=== PATIENT | female | born 1950 | race Caucasian/White ===

== ENCOUNTER 2018-08-12 21:15 | Emergency (ER) | payer MEDICARE ==
[2018-08-12 21:24] VITALS: BP 137/62
[2018-08-12] MEDS ORDERED: Sodium Chloride 0.9% 1,000 ML IV SCH (21:30)
[2018-08-12] MEDS ORDERED: Metoclopramide 10 MG/2 ML SDV IVPUSH ONE (21:32)
[2018-08-12] MEDS ORDERED: diphenhydrAMINE 50 MG/ML SDV IVPUSH ONE (21:32)
--- NOTE | 2018-08-12 21:33 | EDM.PDOC ---
ED HPI GENERAL MEDICAL PROBLEM - General Chief Complaint: Gastrointestinal Problem Stated Complaint: [facility] Time Seen by Provider: 08/12/18 21:24 Source of Information: Reports: Patient, EMS History Limitations: Reports: Altered Mental Status - History of Present Illness INITIAL COMMENTS - FREE TEXT/NARRATIVE: 67-year-old female arrives in the ambulance from [place]. Apparently she's been vomiting intractably since about 1830 hrs. Emesis reported to be dark black in color. Questionable coffee grounds. Has no teeth in. She is mumbling and somewhat dysarthric. She seems to answer appropriately. She is lying still in the left lateral decubitus position. She will not comment that she is dizzy or lightheaded or has a headache. Denies any recent falls. Clear whether she received any medication for vomiting from the [place] ambulance as was no documentation to medications given. Patient denies any abdominal pain. Has no history of peptic ulcer disease. Is been no bright red blood appreciated. Onset: Today Onset Date: 08/12/18 Onset Time: 18:30 Duration: Hour(s): Location: Reports: Abdomen Quality: Reports: Other Severity: Severe (Intractable nausea and vomiting) Improves with: Reports: None Worsens with: Reports: None Context: Reports: Other. Denies: Activity, Exercise, Lifting, Sick Contact, Trauma Associated Symptoms: Reports: Confusion (From what I can gather spontaneous occurrence about 1830 hrs. this evening.), Loss of Appetite, Malaise, Nausea/ Vomiting. Denies: Chest Pain, Cough, cough w sputum, Diaphoresis, Fever/Chills , Headaches, Rash, Seizure (Intractable as mentioned above.), Shortness of Breath, Syncope Treatments [employer]EL [employer]IN[employer]PERATOR: Reports: Other (see below) (None to my knowledge.) - Related Data Allergies Allergy/AdvReac Type Severity Reaction Status Date / Time No Known Allergies Allergy Verified 08/12/18 21:22 Home Meds: Home Meds OLANZapine 20 mg PO BEDTIME 04/05/15 [History] Pravastatin [Pravachol] 40 mg PO DAILY 04/05/15 [History] traZODone 150 mg PO BEDTIME 04/05/15 [History] Past Medical History Cardiovascular History: Reports: High Cholesterol Respiratory History: Reports: COPD (Not on oxygen.) Gastrointestinal History: Reports: GERD, Hiatal Hernia (For many years she's had a large hiatal hernia with her stomach up in her chest.) Musculoskeletal History: Reports: Back Pain, Chronic, Osteoarthritis, Osteoporosis Psychiatric History: Reports: Depression, Schizophrenia (Chronic schizophrenia.) , Other (See Below) (Insomnia) Social & Family History - Tobacco Use Smoking Status *Q: Former Smoker - Living Situation & Occupation Living situation: Reports: , with Spouse Occupation: Retired ED ROS GENERAL - Review of Systems Review Of Systems: See Below Constitutional: Reports: Malaise, Fatigue. Denies: Fever, Chills HEENT: Reports: No Symptoms Respiratory: Reports: Shortness of Breath (Tachypneic on examination at 26/m. O2 sats 90% on room air.), Cough. Denies: Wheezing, Pleuritic Chest Pain Cardiovascular: Reports: Blood Pressure Problem, Dyspnea on Exertion (On lisinopril.). Denies: Chest Pain (Reports she is a smoker.), Claudication, Orthopnea Endocrine: Reports: Fatigue GI/Abdominal: Reports: Nausea, Vomiting (Intractable nausea and vomiting with black emesis reported by paramedics.). Denies: Abdominal Pain, Anorexia, Black Stool, Bloody Stool : Reports: Frequency Musculoskeletal: Reports: Back Pain Skin: Reports: No Symptoms Neurological: Reports: Confusion (Seems to be confused but she has no teeth in at present. She is on multiple sedative medications. Goal to get a history at this time as she is not very talkative and is quite dysarthric.) Psychiatric: Reports: Depression (Has bipolar affective disorder and is on multiple medications to that effect such as olanzapine and trazodone.) Hematologic/Lymphatic: Reports: No Symptoms Immunologic: Reports: No Symptoms ED EXAM, GI/ABD - Physical Exam Exam: See Below Exam Limited By: Altered Mental Status (She is dysarthric speech. She prefers to lie very still with her eyes closed. She denies any vertigo symptoms that I can identify at this time.) General Appearance: Lethargic, Mild Distress, Other (O2 sats are low at 90-92%.) Throat/Mouth: Other Head: Atraumatic, Normocephalic (Tongue is mildly dry and coated.) Neck: Normal Inspection, Supple, Non-Tender, Full Range of Motion. No: Carotid Bruit, Lymphadenopathy (L), Lymphadenopathy (R) Respiratory/Chest: Decreased Breath Sounds, Wheezing (Decreased air into the lower 30% of lung hong bilaterally. Expiratory wheezes.), Other (Anterior lung hong are clear with no evidence of aspiration) Cardiovascular: Regular Rate, Rhythm, No Edema, No Gallop, No Murmur, No Rub GI/Abdominal Exam: Normal Bowel Sounds, Soft, Non-Tender, No Organomegaly, No Abnormal Bruit, No Mass, Pelvis Stable, Other (Obese abdomen.) Back Exam: Normal Inspection, Full Range of Motion. No: CVA Tenderness (L), CVA Tenderness (R) Extremities: Normal Inspection, Normal Range of Motion, Non-Tender, No Pedal Edema, Other (Patient is evidence of pressure ulcers developing on the lateral aspects of both distal fibula. Both knees. Left hip in particular shows evidence of line on the hip for prolonged periods of time with development of friction type blisters and early skin breakdown.) Neurological: Slow to Respond, Other (Dysarthric.) Psychiatric: Other (Unable to assess.) Skin Exam: Warm, Dry, Pallor (Mildly pallid.) EKG INTERPRETATION EKG Date: 08/12/18 Time: 21:35 Rhythm: Other (Occasional unifocal PVCs.) Rate (Beats/Min): 85 [place]: Normal P-Wave: Present QRS: Other (Hours are prime wave in V1 and V2 V3 compatible with an incomplete Rt heart block.) ST-T: Normal QT: Prolonged (Mildly prolonged) EKG Interpretation Comments: Abnormal ECG Course - Vital Signs Last Recorded V/S: Last Vital Signs Temp 36.5 C 08/12/18 21:22 Pulse 89 08/12/18 21:22 Resp 26 H 08/12/18 21:22 BP 137/62 08/12/18 21:22 Pulse Ox 92 L 08/12/18 21:22 - Orders/Labs/Meds Orders: Active Orders 24 hr Category Date Time Status EKG Documentation Completion [RC] STAT Care 08/12/18 21:26 Active Insert Urinary Catheter [OM.PC] Q24H Care 08/12/18 23:15 Ordered Oxygen Therapy [RC] ASDIRECTED Care 08/12/18 21:25 Active Chest 1V Frontal [CR] Stat Exams 08/12/18 23:05 Taken Chest PE [Ang Chest] [CT] Stat Exams 08/12/18 23:02 Taken Head wo Cont [CT] Stat Exams 08/12/18 21:29 Taken CULTURE URINE [RM] Stat Lab 08/13/18 01:12 Received PATIENT RETYPE [BBK] Stat Lab 08/12/18 21:58 Results TYPE AND SCREEN [BBK] Stat Lab 08/12/18 21:58 Results Azithromycin [Zithromax] 500 mg Med 08/13/18 02:44 Active Sodium Chloride 0.9% [Normal Saline] 250 ml IV ONETIME Pantoprazole [ProTONIX IV] 80 mg Med 08/13/18 02:15 Active Sodium Chloride 0.9% [Normal Saline] 100 ml IV Q10H Sodium Chloride 0.9% [Normal Saline] 1,000 ml Med 08/12/18 21:30 Active IV ASDIRECTED Sodium Chloride 0.9% [Normal Saline] 1,000 ml Med 08/13/18 00:15 Active IV ASDIRECTED Sodium Chloride 0.9% [Normal Saline] 100 ml Med 08/13/18 00:15 Active IV ASDIRECTED Medication Orders Sodium Chloride (Normal Saline) 1,000 mls @ 500 mls/hr IV ASDIRECTED [facility] Last Admin: 08/12/18 21:39 Dose: 500 mls/hr Sodium Chloride (Normal Saline) 1,000 mls @ 100 mls/hr IV ASDIRECTED [facility] Last Admin: 08/13/18 00:11 Dose: 100 mls/hr Sodium Chloride (Normal Saline) 100 mls @ 4 mls/sec IV ASDIRECTED [facility] Last Admin: 08/13/18 00:15 Dose: 4 mls/sec Pantoprazole Sodium 80 mg/ (Sodium Chloride) 100 mls @ 10 mls/hr IV Q10H [facility] Last Admin: 08/13/18 02:26 Dose: 10 mls/hr Azithromycin 500 mg/ Sodium (Chloride) 250 mls @ 250 mls/hr IV ONETIME ONE Stop: 08/13/18 03:43 Last Admin: 08/13/18 03:05 Dose: 250 mls/hr Labs: Laboratory Tests 08/12/18 08/12/18 08/12/18 Range/Units 21:58 21:58 21:58 WBC 18.69 H (3.98-10.04) K/mm3 RBC 5.09 (3.98-5.22) M/mm3 Hgb 14.3 (11.2-15.7) gm/L Hct 43.2 (34.1-44.9) % MCV 84.9 (79.4-94.8) fl MCH 28.1 (25.6-32.2) pg MCHC 33.1 (32.2-35.5) g/dl RDW Std Deviation 43.5 (36.4-46.3) fL Plt Count 271 (182-369) K/mm3 MPV 11.4 (9.4-12.3) fl Neutrophils % (Manual) 86 H (40-60) % Band Neutrophils % 0 (0-10) % Lymphocytes % (Manual) 9 L (20-40) % Atypical Lymphs % 0 % Monocytes % (Manual) 5 (2-10) % Eosinophils % (Manual) 0 L (0.7-5.8) % Basophils % (Manual) 0 L (0.1-1.2) Platelet Estimate Adequate Plt Morphology Comment Normal RBC Morph Comment Normal PT 10.4 (9.5-12.1) SECONDS INR 0.95 APTT Cancelled D-Dimer, Quantitative 4.46 H (0.19-0.50) mg/L Sodium 133 L (136-145) mEq/L Potassium 4.1 (3.5-5.1) mEq/L Chloride 96 L (98-107) mEq/L Carbon Dioxide 28 (21-32) mEq/L Anion Gap 13.1 (5-15) BUN 10 (7-18) mg/dL Creatinine 1.1 H (0.55-1.02) mg/dL Est Cr Clr Drug Dosing 38.71 mL/min Estimated GFR (MDRD) 49 (>60) mL/min BUN/Creatinine Ratio 9.1 L (14-18) Glucose 151 H (80-115) mg/dL Lactic Acid (0.4-2.0) mmol/L Calcium 9.1 (8.5-10.1) mg/dL Magnesium (1.8-2.4) mg/dl Total Bilirubin 0.4 (0.2-1.0) mg/dL AST 94 H (15-37) U/L ALT 26 (14-59) U/L Alkaline Phosphatase 82 (46-116) U/L NT-Pro-B Natriuret Pep (0-125) pg/mL Total Protein 7.7 (6.4-8.2) g/dl Albumin 3.3 L (3.4-5.0) g/dl Globulin 4.4 gm/dL Albumin/Globulin Ratio 0.8 L (1-2) Urine Color (Yellow) Urine Appearance (Clear) Urine pH (5.0-8.0) Ur Specific Venus (1.005-1.030) Urine Protein (Negative) Urine Glucose (UA) (Negative) Urine Ketones (Negative) Urine Occult Blood (Negative) Urine Nitrite (Negative) Urine Bilirubin (Negative) Urine Urobilinogen (0.2-1.0) Ur Leukocyte Esterase (Negative) Urine RBC (0-5) /hpf Urine WBC (0-5) /hpf Ur Epithelial Cells (0-5) /hpf Urine Bacteria (FEW) /hpf Urine Mucus (FEW) /hpf Urine Opiates Screen (NEGATIVE) Ur Buprenorphine Scrn (NEGATIVE) Ur Oxycodone Screen (NEGATIVE) Urine Methadone Screen (NEGATIVE) Ur Propoxyphene Screen (NEGATIVE) Ur Barbiturates Screen (NEGATIVE) Ur Tricyclics Screen (NEGATIVE) Ur Phencyclidine Scrn (NEGATIVE) Ur Amphetamine Screen (NEGATIVE) U Methamphetamines Scrn (NEGATIVE) U Benzodiazepines Scrn (NEGATIVE) U Cocaine Metab Screen (NEGATIVE) U Marijuana (THC) Screen (NEGATIVE) Ethyl Alcohol 0.00 (0.00) gm% H. pylori IgG Antibody (NEGATIVE) Blood Type Gel Antibody Screen 08/12/18 08/12/18 08/12/18 Range/Units 21:58 21:58 21:58 WBC (3.98-10.04) K/mm3 RBC (3.98-5.22) M/mm3 Hgb (11.2-15.7) gm/L Hct (34.1-44.9) % MCV (79.4-94.8) fl MCH (25.6-32.2) pg MCHC (32.2-35.5) g/dl RDW Std Deviation (36.4-46.3) fL Plt Count (182-369) K/mm3 MPV (9.4-12.3) fl Neutrophils % (Manual) (40-60) % Band Neutrophils % (0-10) % Lymphocytes % (Manual) (20-40) % Atypical Lymphs % % Monocytes % (Manual) (2-10) % Eosinophils % (Manual) (0.7-5.8) % Basophils % (Manual) (0.1-1.2) Platelet Estimate Plt Morphology Comment RBC Morph Comment PT (9.5-12.1) SECONDS INR APTT D-Dimer, Quantitative (0.19-0.50) mg/L Sodium (136-145) mEq/L Potassium (3.5-5.1) mEq/L Chloride (98-107) mEq/L Carbon Dioxide (21-32) mEq/L Anion Gap (5-15) BUN (7-18) mg/dL Creatinine (0.55-1.02) mg/dL Est Cr Clr Drug Dosing mL/min Estimated GFR (MDRD) (>60) mL/min BUN/Creatinine Ratio (14-18) Glucose (80-115) mg/dL Lactic Acid (0.4-2.0) mmol/L Calcium (8.5-10.1) mg/dL Magnesium 2.0 (1.8-2.4) mg/dl Total Bilirubin (0.2-1.0) mg/dL AST (15-37) U/L ALT (14-59) U/L Alkaline Phosphatase (46-116) U/L NT-Pro-B Natriuret Pep (0-125) pg/mL Total Protein (6.4-8.2) g/dl Albumin (3.4-5.0) g/dl Globulin gm/dL Albumin/Globulin Ratio (1-2) Urine Color (Yellow) Urine Appearance (Clear) Urine pH (5.0-8.0) Ur Specific Venus (1.005-1.030) Urine Protein (Negative) Urine Glucose (UA) (Negative) Urine Ketones (Negative) Urine Occult Blood (Negative) Urine Nitrite (Negative) Urine Bilirubin (Negative) Urine Urobilinogen (0.2-1.0) Ur Leukocyte Esterase (Negative) Urine RBC (0-5) /hpf Urine WBC (0-5) /hpf Ur Epithelial Cells (0-5) /hpf Urine Bacteria (FEW) /hpf Urine Mucus (FEW) /hpf Urine Opiates Screen (NEGATIVE) Ur Buprenorphine Scrn (NEGATIVE) Ur Oxycodone Screen (NEGATIVE) Urine Methadone Screen (NEGATIVE) Ur Propoxyphene Screen (NEGATIVE) Ur Barbiturates Screen (NEGATIVE) Ur Tricyclics Screen (NEGATIVE) Ur Phencyclidine Scrn (NEGATIVE) Ur Amphetamine Screen (NEGATIVE) U Methamphetamines Scrn (NEGATIVE) U Benzodiazepines Scrn (NEGATIVE) U Cocaine Metab Screen (NEGATIVE) U Marijuana (THC) Screen (NEGATIVE) Ethyl Alcohol (0.00) gm% H. pylori IgG Antibody Positive H (NEGATIVE) Blood Type O POSITIVE Gel Antibody Screen Negative 08/12/18 08/12/18 08/12/18 Range/Units 21:58 22:43 22:43 WBC (3.98-10.04) K/mm3 RBC (3.98-5.22) M/mm3 Hgb (11.2-15.7) gm/L Hct (34.1-44.9) % MCV (79.4-94.8) fl MCH (25.6-32.2) pg MCHC (32.2-35.5) g/dl RDW Std Deviation (36.4-46.3) fL Plt Count (182-369) K/mm3 MPV (9.4-12.3) fl Neutrophils % (Manual) (40-60) % Band Neutrophils % (0-10) % Lymphocytes % (Manual) (20-40) % Atypical Lymphs % % Monocytes % (Manual) (2-10) % Eosinophils % (Manual) (0.7-5.8) % Basophils % (Manual) (0.1-1.2) Platelet Estimate Plt Morphology Comment RBC Morph Comment PT (9.5-12.1) SECONDS INR APTT 27 D-Dimer, Quantitative (0.19-0.50) mg/L Sodium (136-145) mEq/L Potassium (3.5-5.1) mEq/L Chloride (98-107) mEq/L Carbon Dioxide (21-32) mEq/L Anion Gap (5-15) BUN (7-18) mg/dL Creatinine (0.55-1.02) mg/dL Est Cr Clr Drug Dosing mL/min Estimated GFR (MDRD) (>60) mL/min BUN/Creatinine Ratio (14-18) Glucose (80-115) mg/dL Lactic Acid (0.4-2.0) mmol/L Calcium (8.5-10.1) mg/dL Magnesium (1.8-2.4) mg/dl Total Bilirubin (0.2-1.0) mg/dL AST (15-37) U/L ALT (14-59) U/L Alkaline Phosphatase (46-116) U/L NT-Pro-B Natriuret Pep (0-125) pg/mL Total Protein (6.4-8.2) g/dl Albumin (3.4-5.0) g/dl Globulin gm/dL Albumin/Globulin Ratio (1-2) Urine Color Yellow (Yellow) Urine Appearance Cloudy H (Clear) Urine pH 6.0 (5.0-8.0) Ur Specific Venus > or = 1.030 (1.005-1.030) Urine Protein 1+ H (Negative) Urine Glucose (UA) Negative (Negative) Urine Ketones Negative (Negative) Urine Occult Blood Trace-lysed H (Negative) Urine Nitrite Negative (Negative) Urine Bilirubin Negative (Negative) Urine Urobilinogen 0.2 (0.2-1.0) Ur Leukocyte Esterase 1+ H (Negative) Urine RBC 5-10 H (0-5) /hpf Urine WBC 20-30 H (0-5) /hpf Ur Epithelial Cells 0-5 (0-5) /hpf Urine Bacteria Many H (FEW) /hpf Urine Mucus Few (FEW) /hpf Urine Opiates Screen Negative (NEGATIVE) Ur Buprenorphine Scrn Negative (NEGATIVE) Ur Oxycodone Screen Negative (NEGATIVE) Urine Methadone Screen Negative (NEGATIVE) Ur Propoxyphene Screen Negative (NEGATIVE) Ur Barbiturates Screen Negative (NEGATIVE) Ur Tricyclics Screen Presumptive positive H (NEGATIVE) Ur Phencyclidine Scrn Negative (NEGATIVE) Ur Amphetamine Screen Negative (NEGATIVE) U Methamphetamines Scrn Presumptive positive H (NEGATIVE) U Benzodiazepines Scrn Presumptive positive H (NEGATIVE) U Cocaine Metab Screen Negative (NEGATIVE) U Marijuana (THC) Screen Negative (NEGATIVE) Ethyl Alcohol (0.00) gm% H. pylori IgG Antibody (NEGATIVE) Blood Type Gel Antibody Screen 08/12/18 08/13/18 08/13/18 Range/Units 23:10 02:25 02:25 WBC (3.98-10.04) K/mm3 RBC (3.98-5.22) M/mm3 Hgb (11.2-15.7) gm/L Hct (34.1-44.9) % MCV (79.4-94.8) fl MCH (25.6-32.2) pg MCHC (32.2-35.5) g/dl RDW Std Deviation (36.4-46.3) fL Plt Count (182-369) K/mm3 MPV (9.4-12.3) fl Neutrophils % (Manual) (40-60) % Band Neutrophils % (0-10) % Lymphocytes % (Manual) (20-40) % Atypical Lymphs % % Monocytes % (Manual) (2-10) % Eosinophils % (Manual) (0.7-5.8) % Basophils % (Manual) (0.1-1.2) Platelet Estimate Plt Morphology Comment RBC Morph Comment PT (9.5-12.1) SECONDS INR APTT D-Dimer, Quantitative (0.19-0.50) mg/L Sodium (136-145) mEq/L Potassium (3.5-5.1) mEq/L Chloride (98-107) mEq/L Carbon Dioxide (21-32) mEq/L Anion Gap (5-15) BUN (7-18) mg/dL Creatinine (0.55-1.02) mg/dL Est Cr Clr Drug Dosing mL/min Estimated GFR (MDRD) (>60) mL/min BUN/Creatinine Ratio (14-18) Glucose (80-115) mg/dL Lactic Acid 1.3 (0.4-2.0) mmol/L Calcium (8.5-10.1) mg/dL Magnesium 2.0 (1.8-2.4) mg/dl Total Bilirubin (0.2-1.0) mg/dL AST (15-37) U/L ALT (14-59) U/L Alkaline Phosphatase (46-116) U/L NT-Pro-B Natriuret Pep 565 H (0-125) pg/mL Total Protein (6.4-8.2) g/dl Albumin (3.4-5.0) g/dl Globulin gm/dL Albumin/Globulin Ratio (1-2) Urine Color (Yellow) Urine Appearance (Clear) Urine pH (5.0-8.0) Ur Specific Venus (1.005-1.030) Urine Protein (Negative) Urine Glucose (UA) (Negative) Urine Ketones (Negative) Urine Occult Blood (Negative) Urine Nitrite (Negative) Urine Bilirubin (Negative) Urine Urobilinogen (0.2-1.0) Ur Leukocyte Esterase (Negative) Urine RBC (0-5) /hpf Urine WBC (0-5) /hpf Ur Epithelial Cells (0-5) /hpf Urine Bacteria (FEW) /hpf Urine Mucus (FEW) /hpf Urine Opiates Screen (NEGATIVE) Ur Buprenorphine Scrn (NEGATIVE) Ur Oxycodone Screen (NEGATIVE) Urine Methadone Screen (NEGATIVE) Ur Propoxyphene Screen (NEGATIVE) Ur Barbiturates Screen (NEGATIVE) Ur Tricyclics Screen (NEGATIVE) Ur Phencyclidine Scrn (NEGATIVE) Ur Amphetamine Screen (NEGATIVE) U Methamphetamines Scrn (NEGATIVE) U Benzodiazepines Scrn (NEGATIVE) U Cocaine Metab Screen (NEGATIVE) U Marijuana (THC) Screen (NEGATIVE) Ethyl Alcohol (0.00) gm% H. pylori IgG Antibody (NEGATIVE) Blood Type Gel Antibody Screen Meds: Medications Generic Name Dose Route Start Last Admin Trade Name Freq PRN Reason Stop Dose Admin Sodium Chloride 1,000 mls @ 500 mls/hr 08/12/18 21:30 08/12/18 21:39 Normal Saline IV 500 mls/hr ASDIRECTED [facility] Administration Sodium Chloride 1,000 mls @ 100 mls/hr 08/13/18 00:15 08/13/18 00:11 Normal Saline IV 100 mls/hr ASDIRECTED [facility] Administration Sodium Chloride 100 mls @ 4 mls/sec 08/13/18 00:15 08/13/18 00:15 Normal Saline IV 4 mls/sec ASDIRECTED [facility] Administration Pantoprazole Sodium 80 mg/ 100 mls @ 10 mls/hr 08/13/18 02:15 08/13/18 02:26 Sodium Chloride IV 10 mls/hr Q10H [facility] Administration Azithromycin 500 mg/ Sodium 250 mls @ 250 mls/hr 08/13/18 02:44 08/13/18 03: 05 Chloride IV 08/13/18 03:43 250 mls/hr ONETIME ONE Administration Discontinued Medications Generic Name Dose Route Start Last Admin Trade Name Freq PRN Reason Stop Dose Admin Diphenhydramine HCl 25 mg 08/12/18 21:32 08/12/18 21:51 Benadryl IVPUSH 08/12/18 21:33 25 mg ONETIME ONE Administration Ceftriaxone Sodium 2 gm/ 100 mls @ 100 mls/hr 08/13/18 01:07 08/13/18 01:17 Sodium Chloride IV 08/13/18 02:06 100 mls/hr ONETIME ONE Administration Iopamidol 100 ml 08/13/18 00:13 08/13/18 00:14 Isovue-370 (76%) IVPUSH 08/13/18 00:14 100 ml ONETIME ONE Administration Metoclopramide HCl 10 mg 08/12/18 21:32 08/12/18 21:51 Reglan IVPUSH 08/12/18 21:33 10 mg ONETIME ONE Administration Pantoprazole Sodium 40 mg 08/13/18 02:13 08/13/18 02:25 Protonix Iv IVPUSH 08/13/18 02:14 40 mg ONETIME ONE Administration - Radiology Interpretation Free Text/Narrative:: 67-year-old female arrives per [place] ambulance with reported intractable nausea and vomiting of black material possibly representing coffee ground emesis. It is unclear when she started vomiting. One of her lucid moments she mentioned to the nurse that it was yesterday. Her reported 1:30 today and to me she told me it was 1830 hrs. tonight. Unclear whether paramedics they administered any medication to her. She arrives and is lying on her left lateral decubitus position with eyes closed. Speech is quite dysarthric but she doesn't have her TPN. She seems quite lethargic. She denies headache. Abdominal pain. She is a smoker. Exam of her vital signs reveal O2 sats of only 90-92% on room air. Placed on oxygen at 2 L/m by nasal cannula. Respiratory rate was 26/ m. Her pressure is normal. Afebrile. Quite pallid and slightly diaphoretic on examination. You're difficult to get much history from her she prefers to lie very still with her eyes closed. She denies headache. Concern for possible stroke is evident to dysarthric speech and intractable nausea and vomiting. No family members are with her. Plan CT head to rule out a intracranial bleed. Given Reglan 10 mg IV with Benadryl 25 mg IV to make sure there is no dystonic reaction i.e. with reaction to her Olanzapine that she takes daily. Routine labs including blood alcohol and urine drug screen to be done. IV will be normal saline at 500 mils per hour. Type and screen performed. - Re-Assessments/Exams Free Text/Narrative Re-Assessment/Exam: 08/12?18: 22:00: CT of the head has been completed. It reveals significant periventricular white matter hypodensities bilaterally. A lacunar infarct involving the left basal ganglia is again noted. There is mild age related parenchymal volume loss. Stable slight asymmetry of the lateral ventricles left larger than the right. No true ventriculomegaly. No fractures are intracranial bleeding are identified. 08/12/18 23:01 White count is markedly elevated at 18.69 with 86% neutrophils and no bands reported. Hemoglobin is 14.3 with hematocrit of 43.2. Platelet count is 271,000. PT is 10.4 with an INR of 0.95. PTT is 27. D-dimer is elevated at 4.46. Sodium is 133 with a potassium of 4.1. Chloride is 96 with a bicarbonate of 28. And a gap is 13.1 with a BUN of 10. Creatinine is 1.1 with a GFR of 49. Glucose is slightly elevated at 151. Calcium is 9.1 magnesium is 2.0. Total bilirubin 0.4. AST is 94 with an ALT of 26. Alk phosphatase is 82. Albumin fraction slightly low at 3.3 total protein is normal at 7.7. Blood alcohol was 0.0. Due to the elevated d-dimer I will have a CT pulmonary and gram carried out. Creatinine is 1.1. The elevated white blood cell count unclear if this is stress response versus an infective process. I will order a lactic acid. Urinalysis is not yet been completed I had ordered it by catheterization. 08/12/18 23:09 H. pylori was positive as well. The emesis was tested for blood and was heme positive on Hemoccult testing which may not be accurate. However the emesis has the characteristics of coffee-ground emesis. 08/13/18 00:32 Patient has had no vomiting since in the department. She has been mostly sleeping. Portable chest x-ray reveals a large soft tissue density with air in the mid chest is suspicious for a large hiatal hernia. This makes reading of the size of her heart somewhat difficult but there appears to be moderate cardiomegaly. There is some scarring in both upper and lower lobes. Small pleural effusion with blunting of the costophrenic angle on the left side. ET pulmonary and gram is been completed but I do not have the radiology report back yet. 08/13/18 01:09 Urine obtained by catheter reveals 1+ leukocyte esterase trace. There is 5-10 RBCs and 20-30 WBCs per high-power field as well. Many bacteria appreciated. Cultures will be ordered. Urinalysis is positive for tricyclics presumptively as well as methamphetamines and benzodiazepines. [place] was 0. Lactic acid was 1.3. CT of the chest done with contrast to rule out PE. Exam is moderately limited by motion artifact. Lungs reveals severe central lobar emphysematous changes bilaterally. There is a focal consolidation within the right lower lobe. There is mild airspace disease within the left base as well with some groundglass opacification. A linear band of airspace disease is seen within the right middle lobe. Pleural space appears normal with no pneumothorax or pleural effusion. Heart borderline cardiomegaly with no pericardial effusion. Mediastinum reveals a very large hiatal hernia. The esophagus is patulous with mild wall thickening suggesting chronic reflux. Aorta reveals moderate calcific atherosclerosis involving the thoracic aorta. No sign of thoracic aortic aneurysm. No enlarged lymph nodes appreciated in the mediastinum. There are healed fractures of the left fourth through sixth ribs. Moderate spondylitic changes are present within the spine. No acute osseous changes are identified. Dictated calcifications are present throughout the pancreas consistent with chronic pancreatitis. Therefore she clinically has a urinary tract infection and likely pneumonia. This would account for the elevated white blood cell count. Bleeding from vomiting likely secondary to severe esophagitis chronically. Will give Rocephin 2 g IV. Will give her Protonix 40 mg IV and start her on Protonix drip 8 mg per hour due to persistent upper GI bleeding by history. The CT also suggest chronic inflammation of the distal esophagus compatible with development of esophagitis or Hunter's esophagus. I discussed the case with our hospital is patchy feels the patient requires services and larger center and suggest [place]. I will therefore speak to the hospitalist at [facility] in [place] with hopes of being able to transport her there by ground ambulance. 08/13/18 02:45 Spoke with --hospitalist at [facility] in [place] and he has accepted care of Mrs. Sal. He is asked that eyes also give her Zithromax 500 mg IV well she is en route to [place]. This will be ordered at this time. This will cover atypical organisms that may cause pneumonia. We do not have local availability of our ambulance. We will call [place] [facility] is to provide transport to [place]. Further labs not available. Magnesium is 2.0 but BNP is slightly elevated at 565 which may be contributing to her hypoxemia. She also received a liter of IV fluids on initial part of resuscitation is currently on 100 mils per hour for maintenance. She will be given Lasix 40 mg IV. Departure - Departure Time of Disposition: 03:21 Disposition: DC/Tfer to Acute Hospital 02 Condition: Poor Clinical Impression: Hematemesis with nausea, Hypoxia, Hiatal hernia with GERD and esophagitis, Chronic residual schizophrenia, Neutrophilic leukocytosis Pneumonia Qualifiers: Pneumonia type: due to unspecified organism Laterality: right Lung location: lower lobe of lung Qualified Code(s): J18.1 - Lobar pneumonia, unspecified organism COPD (chronic obstructive pulmonary disease) with emphysema Qualifiers: Emphysema type: panlobular Qualified Code(s): J43.1 - Panlobular emphysema Urinary tract infection Qualifiers: Urinary tract infection type: site unspecified Hematuria presence: without hematuria Qualified Code(s): N39.0 - Urinary tract infection, site not specified CHF (congestive heart failure) Qualifiers: Heart failure type: unspecified Heart failure chronicity: unspecified Qualified Code(s): I50.9 - Heart failure, unspecified - Discharge Information *PRESCRIPTION DRUG MONITORING PROGRAM REVIEWED*: No *COPY OF PRESCRIPTION DRUG MONITORING REPORT IN PATIENT JORDAN: No Referrals: Laure Hi MD [Primary Care Provider] - Forms: ED Department Discharge Additional Instructions: Due to multiple comorbidities and possibility of upper GI bleeding with coffee- ground emesis for 1 day patient transferred to [facility] for definitive management as she appears to be in need of endoscopy. Emesis that she had in the department was heme positive but Hemoccult was used to test the specimen. It did certainly have the appearance of coffee grounds emesis. CT suggests pneumonia right lower lobe and possibility of early pneumonia left lower lobe as well. Large hiatal hernia in the chest with evidence of esophagitis with esophageal thickening likely front office representative free reflux. Laceration could not be visualized urinary tract infection identified by catheter urine. History of chronic schizophrenia with a lengthy psychiatric history in the old charts. Unable to establish a code level for her. - My Orders Last 24 Hours: My Active Orders 08/12/18 21:25 Oxygen Therapy [RC] ASDIRECTED 08/12/18 21:26 EKG Documentation Completion [RC] STAT 08/12/18 21:29 Head wo Cont [CT] Stat 08/12/18 21:30 Sodium Chloride 0.9% [Normal Saline] 1,000 ml IV ASDIRECTED 08/12/18 21:58 PATIENT RETYPE [BBK] Stat TYPE AND SCREEN [BBK] Stat 08/12/18 23:02 Chest PE [Ang Chest] [CT] Stat 08/12/18 23:05 Chest 1V Frontal [CR] Stat 08/12/18 23:15 Insert Urinary Catheter [OM.PC] Q24H 08/13/18 00:15 Sodium Chloride 0.9% [Normal Saline] 1,000 ml IV ASDIRECTED Sodium Chloride 0.9% [Normal Saline] 100 ml IV ASDIRECTED 08/13/18 01:12 CULTURE URINE [RM] Stat 08/13/18 02:15 Pantoprazole [ProTONIX IV] 80 mg Sodium Chloride 0.9% [Normal Saline] 100 ml IV Q10H 08/13/18 02:44 Azithromycin [Zithromax] 500 mg Sodium Chloride 0.9% [Normal Saline] 250 ml IV ONETIME - Assessment/Plan Last 24 Hours: My Active Orders 08/12/18 21:25 Oxygen Therapy [RC] ASDIRECTED 08/12/18 21:26 EKG Documentation Completion [RC] STAT 08/12/18 21:29 Head wo Cont [CT] Stat 08/12/18 21:30 Sodium Chloride 0.9% [Normal Saline] 1,000 ml IV ASDIRECTED 08/12/18 21:58 PATIENT RETYPE [BBK] Stat TYPE AND SCREEN [BBK] Stat 08/12/18 23:02 Chest PE [Ang Chest] [CT] Stat 08/12/18 23:05 Chest 1V Frontal [CR] Stat 08/12/18 23:15 Insert Urinary Catheter [OM.PC] Q24H 08/13/18 00:15 Sodium Chloride 0.9% [Normal Saline] 1,000 ml IV ASDIRECTED Sodium Chloride 0.9% [Normal Saline] 100 ml IV ASDIRECTED 08/13/18 01:12 CULTURE URINE [RM] Stat 08/13/18 02:15 Pantoprazole [ProTONIX IV] 80 mg Sodium Chloride 0.9% [Normal Saline] 100 ml IV Q10H 08/13/18 02:44 Azithromycin [Zithromax] 500 mg Sodium Chloride 0.9% [Normal Saline] 250 ml IV ONETIME
[2018-08-13] MEDS ORDERED: Iopamidol 755 Mg/ML 100 ML Bottle IVPUSH ONE (00:13)
[2018-08-13] MEDS ORDERED: Sodium Chloride 0.9% 100 ML IV SCH (00:15)
[2018-08-13] MEDS ORDERED: Sodium Chloride 0.9% 1,000 ML IV SCH (00:15)
[2018-08-13] MEDS ORDERED: cefTRIAXone 2 GM in Sodium Chloride 0.9% 100 ML IV ONE (01:07)
[2018-08-13] MEDS ORDERED: Pantoprazole 40 MG Vial IVPUSH ONE (02:13)
[2018-08-13] MEDS ORDERED: Pantoprazole 80 MG in Sodium Chloride 0.9% 100 ML IV SCH (02:15)
[2018-08-13] MEDS ORDERED: Azithromycin 500 MG in Sodium Chloride 0.9% 250 ML IV ONE (02:44)
[2018-08-13] MEDS ORDERED: Furosemide 40 MG/4 ML VIAL IVPUSH ONE (03:18)
--- NOTE | 2018-08-13 09:20 | CT ---
Head CT Technique: Multiple axial sections through the brain were obtained. Comparison: Prior head CT exam of 08/12/12. Findings: Ventricles along with basal cisterns and sulci over the convexities are mildly prominent. Diminished density is noted within the periventricular and subcortical white matter which is compatible with small vessel ischemic demyelination change. Old infarcts are seen within the left basal ganglia with ex vacuole enlargement of the left lateral ventricle. Atherosclerotic calcification is seen within the vertebral vessels and carotid siphon. No evidence of intracranial hemorrhage. No midline shift or mass effect is seen. Bone window settings were reviewed which show no acute calvarial abnormality. Visualized sinuses are grossly clear. Impression: 1. Senescent change as noted above. 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 2. Nothing acute is appreciated on noncontrast CT study of the brain. Diagnostic code #3 I agree with preliminary report issued by [facility] ([facility] report finalized on 08/12/18, 11:08 PM Central Time)
--- NOTE | 2018-08-13 09:20 | CT ---
CT chest Technique: Multiple axial sections were obtained from above the lung apices inferiorly through the lung bases. Intravenous contrast was utilized. Study performed as a pulmonary angiogram protocol. Comparison: Prior chest x-ray performed earlier on the same day (11:20 PM). No prior chest CT is available. Findings: Pulmonary arteries are moderately well-opacified. No discrete filling defects are seen to indicate pulmonary embolism. Large hiatal hernia is noted. Dilated esophagus is seen. Esophageal finding most likely due to chronic reflux. Coronary artery calcification is noted. Diffuse atherosclerotic calcification is seen within the thoracic aorta with atherosclerotic change extending into the branch vessels. Emphysematous change is noted throughout both lungs. Thick linear density is noted within the right middle lobe most likely due to an area of atelectasis. Minimal parenchymal density is seen posteriorly on the left most likely due to scarring. Mild interstitial change is noted within both posterior lung bases which is felt to represent fibrosis. Bone window settings were reviewed which show degenerative spurring within the spine. Impression: 1. No findings of pulmonary embolism. 2. Emphysematous change. 3. Large hiatal hernia with dilated esophagus most likely due to chronic reflux. 4. Other incidental findings as noted above. Nothing acute is appreciated. Diagnostic code #3 I agree with preliminary report issued by [email or web address] ([facility] report finalized on 08/13/18, 1:51 AM Central Time)
--- NOTE | 2018-08-13 09:20 | CR ---
Chest: Portable view of the chest was obtained. Comparison: Prior chest x-ray of 01/16/15. Large hiatal hernia is seen which has worsened from previous exam. Mild interstitial change is noted which is felt compatible with fibrosis. No acute parenchymal change is seen. Bony structures are osteopenic. Impression: 1. Large hiatal hernia. 2. Mild interstitial fibrosis. Diagnostic code #3
== END 2018-08-13 03:40 ==
LOC: JD.ED 21:15
DX: K21.0 Gastro-esophageal reflux disease with esophagitis (principal); K46.9 Unspecified abdominal hernia without obstruction or gangrene; N39.0 Urinary tract infection, site not specified; I50.9 Heart failure, unspecified; R09.02 Hypoxemia; J18.9 Pneumonia, unspecified organism; J43.1 Panlobular emphysema; F20.9 Schizophrenia, unspecified; D72.828 Other elevated white blood cell count; Z87.891 Personal history of nicotine dependence; Z79.899 Other long term (current) drug therapy
CPT/HCPCS: 36415; 70450; 70450-26; 71045; 71045-26; 71275; 71275-26; 80053; 80306; 81001; 83605; 83735; 83880; 85007; 85027; 85379; 85610; 85730; 86677; 86850; 86900; 86901; 87086; 87088; 87186; 93005; 93010; 96361; 96365; 96367; 96368; 96375; 99285-25; C9113; G0480; J0456; J0696; J1200; J2765; J7030; J7040; J7050; Q9967